=== PATIENT | female | born 1985 | race Two or more races ===

== ENCOUNTER 2016-11-14 06:58 | Emergency (ER) | payer SELFPAY ==
[~2016-11-14] VITALS: Ht 157.5 cm; Wt 80.9 kg
[2016-11-14 08:42] LABS: ASPARTATE AMINO TRANSFERASE 13 U/L (15-37); BLOOD UREA NITROGEN 9 mg/dL (7-18)
[2016-11-14 09:19] LABS: PATH.CAST-FLAG NOT PRESENT; SPERM-FLAG NOT PRESENT; SRC-FLAG NOT PRESENT; XTAL-FLAG NOT PRESENT; YLC-FLAG NOT PRESENT
[2016-11-14 10:32] VITALS: BP 123/75
== END 2016-11-14 10:34 | disposition home or self-care (01) ==
LOC: ED 07:29
DX: O30.041 Twin pregnancy, dichorionic/diamniotic, first trimester (principal); O20.9 Hemorrhage in early pregnancy, unspecified; O23.41 Unspecified infection of urinary tract in pregnancy, first trimester; N39.0 Urinary tract infection, site not specified; Z3A.01 Less than 8 weeks gestation of pregnancy
CPT/HCPCS: 36415; 76801; 80053; 81001; 84702; 85025; 86901; 87077; 87086; 87186

== ENCOUNTER 2017-01-04 10:15 | Emergency (ER) | payer MEDICAID, OTHER ==
[~2017-01-04] VITALS: Ht 154.9 cm; Wt 80.1 kg
[2017-01-04 11:33] VITALS: BP 115/80
[2017-01-04] MEDS ORDERED: PREN-1 PO (11:56)
[2017-01-04] MEDS ORDERED: ANTIBIOTIC (11:56)
== END 2017-01-04 13:04 | disposition home or self-care (01) ==
LOC: ED 11:11
DX: O20.0 Threatened abortion (principal); O23.41 Unspecified infection of urinary tract in pregnancy, first trimester; Z3A.14 14 weeks gestation of pregnancy
CPT/HCPCS: 81001; 87086; 99284